=== PATIENT | female | born 1990 | race Caucasian/White ===

== ENCOUNTER 2023-09-11 07:20 | Inpatient (IN) | payer BC ==
[2023-09-11 08:10] VITALS: BMI 35.2
[2023-09-11] MEDS ORDERED: SODIUM CHLORIDE 100 ML IVPB ONE ×2 (08:44→14:05)
[2023-09-11] MEDS ORDERED: AMPICILLIN SODIUM 2 GM VIAL ONE (08:44)
[2023-09-11] MEDS ORDERED: AMPICILLIN - 2 GM in SODIUM CHLORIDE 100 ML IVPB ONE (08:46)
[2023-09-11] MEDS: ELECTROLYTE-148 SOLN 1,000 ML IV SCH (09:15)
[2023-09-11] MEDS: OXYTOCIN 30 UNITS in 0.9% NS 30 UNIT/500 ML INFUS.BAG IVPB SCH (09:31)
[2023-09-11 10:29] LABS: INR 1.03 (0.83-1.09); PROTHROMBIN TIME (PATIENT) 11.9 SEC (9.7-13.0)
[2023-09-11 10:31] LABS: BASO % 0.6 % (0-2.0); EOS % 0.9 % (0-4.5); HEMATOCRIT 30.6 % (32.4-45.2); HEMOGLOBIN 10.1 GM/dL (10.7-15.3); LYMPH % 15.8 % (8-40); MCH 24.2 pg (25.7-33.7); MCHC 32.9 g/dl (32.0-36.0); MEAN CELL VOLUME 73.5 fl (80-96); MEAN PLT VOLUME 8.7 fl (7.5-11.1); NEUT % 76.7 % (42.8-82.8); PLATELET COUNT 308 10^3/uL (134-434); RBC 4.16 M/mm3 (3.60-5.2); RDW 15.1 % (11.6-15.6); WHITE BLOOD COUNT 10.4 K/mm3 (4.0-10.0)
[2023-09-11 10:32] LABS: ACTIVATED PTT 29.5 SECONDS (25.2-36.5)
[2023-09-11 10:49] LABS: POTASSIUM 3.5 mmol/L (3.5-5.1)
[2023-09-11] MEDS ORDERED: LABETALOL HCL 20 MG/4 ML VIAL ONE ×2 (10:51→13:04)
[2023-09-11 10:52] LABS: BLOOD UREA NITROGEN 5.7 mg/dL (7-18); CALCIUM 7.9 mg/dL (8.5-10.1)
[2023-09-11 10:56] LABS: CREATININE 0.4 mg/dL (0.55-1.3)
[2023-09-11] MEDS ORDERED: LABETALOL HCL 5 MG/1 ML (100MG/20 ML VIAL) IVPUSH ONE ×2 (10:56→13:30)
[2023-09-11 11:10] LABS: SYPHILIS W/ RPR CONF NON-REACTIVE (NONREACTIVE)
[2023-09-11 11:39] LABS: HIV INTERPRETATION NEGATIVE (NEGATIVE)
[2023-09-11] MEDS ORDERED: AMPICILLIN SODIUM 1 GM VIAL ONE (14:05)
[2023-09-11] MEDS: AMPICILLIN - 1 GM in SODIUM CHLORIDE 100 ML IVPB SCH ×2 (14:08→18:23)
[2023-09-11] MEDS ORDERED: CITRIC ACID/SODIUM CITRATE 30 ML UNIT-DOSE CUP PO ONE ×2 (15:00→15:39)
[2023-09-11] MEDS ORDERED: ONDANSETRON 4 MG/2 ML VIAL IVPUSH PRN (15:40)
[2023-09-11] MEDS ORDERED: ACETAMINOPHEN 325 MG TABLET (FP) PO PRN ×2 (15:40→17:05)
[2023-09-11] MEDS ORDERED: morphine SULFATE/PF 1 MG/2 ML (2cc Syringe - QUVA) EP ONE (15:40)
[2023-09-11] MEDS ORDERED: ceFAZolin SODIUM 1 GM VIAL ONE (15:58)
[2023-09-11] MEDS ORDERED: SODIUM CHLORIDE 0.9% P/F 10 ML VIAL IJ ONE (15:58)
[2023-09-11] MEDS ORDERED: OXYTOCIN 10 UNITS/ML VIAL ONE (16:16)
[2023-09-11] MEDS ORDERED: ONDANSETRON 4 MG/2 ML VIAL ONE (16:22)
[2023-09-11] MEDS ORDERED: METOCLOPRAMIDE HCL INJECTION 10 MG/2 ML VIAL ONE (16:32)
[2023-09-11] MEDS ORDERED: IBUPROFEN 600 MG TABLET (FP) PO PRN (17:05)
[2023-09-11] MEDS ORDERED: SENNOSIDES/DOCUSATE COMBO (SENNA PLUS) TABLET (UD) PO PRN (17:05)
[2023-09-11] MEDS ORDERED: METHYLERGONOVINE MALEATE 0.2 MG/1 ML AMP IM PRN (17:05)
[2023-09-11] MEDS ORDERED: ACETAMINOPHEN INJECTION 100 ML IVPB ONE (17:51)
[2023-09-11] MEDS ORDERED: OXYTOCIN 20 UNITS in 0.9% NS 20 UNIT/1,000 ML INFUS.BAG IV ONE (17:53)
[2023-09-11] MEDS: ACETAMINOPHEN 1000 MG/100 ML BAG IVPB PRN (17:58)
[2023-09-11] MEDS: OXYTOCIN 20 UNITS in 0.9% NS 20 UNIT/1,000 ML INFUS.BAG IV SCH ×2 (18:01→21:55)
[2023-09-11] MEDS: FERROUS SO4 325 MG TABLET (FP) PO SCH (20:45)
[2023-09-11] MEDS: LABETALOL HCL 200 MG TABLET (FP) PO SCH (21:51)
[2023-09-11] MEDS: SIMETHICONE 80 MG TAB.CHEW (FP) PO PRN (23:46)
[2023-09-11] MEDS: IBUPROFEN 800 MG/8 ML IJ IVPB PRN (23:46)
[2023-09-12] MEDS ORDERED: oxyCODONE HCL 5 MG TABLET PO PRN (05:05)
[2023-09-12 08:42] LABS: BASO % 0.4 % (0-2.0); EOS % 0.3 % (0-4.5); HEMATOCRIT 24.5 % (32.4-45.2); HEMOGLOBIN 7.9 GM/dL (10.7-15.3); LYMPH % 11.4 % (8-40); MCH 23.7 pg (25.7-33.7); MCHC 32.2 g/dl (32.0-36.0); MEAN CELL VOLUME 73.7 fl (80-96); MEAN PLT VOLUME 8.9 fl (7.5-11.1); NEUT % 82.9 % (42.8-82.8); PLATELET COUNT 254 10^3/uL (134-434); RBC 3.32 M/mm3 (3.60-5.2); RDW 15.5 % (11.6-15.6); WHITE BLOOD COUNT 12.9 K/mm3 (4.0-10.0)
[2023-09-12] MEDS: FERROUS SO4 325 MG TABLET (FP) PO SCH ×2 (08:43→18:19)
[2023-09-12] MEDS: LABETALOL HCL 200 MG TABLET (FP) PO SCH ×2 (10:36→22:15)
[2023-09-12] MEDS: PRENATAL VITAMINS W/ FOLIC ACID TABLET (FP) PO SCH (10:37)
[2023-09-12] MEDS: ACETAMINOPHEN 1000 MG/100 ML BAG IVPB PRN (10:37)
[2023-09-12] MEDS: IBUPROFEN 800 MG/8 ML IJ IVPB PRN (14:19)
[2023-09-12] MEDS ORDERED: BISACODYL 10 MG SUPP.RECT RC PRN (17:05)
[2023-09-12] MEDS: AMPICILLIN - 1 GM in SODIUM CHLORIDE 100 ML IVPB SCH ×3 (19:05→19:18)
[2023-09-12] MEDS: OXYTOCIN 20 UNITS in 0.9% NS 20 UNIT/1,000 ML INFUS.BAG IV SCH (19:19)
[2023-09-12] MEDS: ELECTROLYTE-148 SOLN 1,000 ML IV SCH (19:19)
[2023-09-12] MEDS: OXYTOCIN 30 UNITS in 0.9% NS 30 UNIT/500 ML INFUS.BAG IVPB SCH (19:20)
[2023-09-12] MEDS: SIMETHICONE 80 MG TAB.CHEW (FP) PO PRN (22:13)
[2023-09-12] MEDS: IBUPROFEN 600 MG TABLET (FP) PO PRN (22:14)
[2023-09-13] MEDS: FERROUS SO4 325 MG TABLET (FP) PO SCH ×2 (08:36→18:31)
[2023-09-13] MEDS: oxyCODONE HCL 5 MG TABLET PO PRN ×2 (08:36→20:07)
[2023-09-13] MEDS: SIMETHICONE 80 MG TAB.CHEW (FP) PO PRN ×3 (08:40→20:08)
[2023-09-13] MEDS: LABETALOL HCL 200 MG TABLET (FP) PO SCH ×2 (11:15→22:04)
[2023-09-13] MEDS: PRENATAL VITAMINS W/ FOLIC ACID TABLET (FP) PO SCH (11:15)
[2023-09-13] MEDS: IBUPROFEN 600 MG TABLET (FP) PO PRN (13:33)
[2023-09-14] MEDS: SIMETHICONE 80 MG TAB.CHEW (FP) PO PRN (04:54)
[2023-09-14] MEDS: oxyCODONE HCL 5 MG TABLET PO PRN (04:56)
[2023-09-14] MEDS: FERROUS SO4 325 MG TABLET (FP) PO SCH (09:00)
[2023-09-14] MEDS: IBUPROFEN 600 MG TABLET (FP) PO PRN (09:56)
[2023-09-14] MEDS: LABETALOL HCL 200 MG TABLET (FP) PO SCH (09:56)
[2023-09-14] MEDS: PRENATAL VITAMINS W/ FOLIC ACID TABLET (FP) PO SCH (09:56)
[2023-09-14 10:40] VITALS: BP 124/76; PULSE 84; RESP 16; TEMP 98.6
== END 2023-09-14 12:35 | disposition home or self-care (01) | DRG 788 ==
LOC: JLDR 07:20 → J3W 20:43
PROVIDERS: ADMIT Obstetrics & Gynecology; ATTEND Obstetrics & Gynecology
PROC: 10D00Z1 Extraction of Products of Conception, Low, Open Approach (ICD-10-PCS; principal; 2023-09-11)
DX: O14.94 Unspecified pre-eclampsia, complicating childbirth (principal); Z3A.39 39 weeks gestation of pregnancy; Z37.0 Single live birth
CPT/HCPCS: 36415; 80048; 85025; 85610; 85730; 86780; 86850; 86900; 86901; 87389; 88307-TC